=== PATIENT | female | born 1960 | race Caucasian/White ===

== ENCOUNTER 2016-08-14 17:20 | Emergency (ER) | payer SELFPAY ==
[2016-08-14] MEDS ORDERED: KETOROLAC TROMETHAMINE 60 MG/2 ML SDV IM ONE (17:53)
[2016-08-14] MEDS ORDERED: OXYCODONE-ACETAMINOPHEN 5-325 MG TABLET PO ONE (17:53)
[2016-08-14] MEDS ORDERED: ONDANSETRON 4 MG TAB.RAPDIS PO ONE (17:53)
--- NOTE | 2016-08-14 17:55 | ER Document Report ---
ED Medical Screen (RME) - General Chief Complaint: Abdominal Pain Stated Complaint: ABDOMINAL PAIN Notes: This 52-year-old female reports severe pain from her left lower abdomen going into the left flank started about 2 hours prior to arrival. She is unable sit still. She is moaning and groaning. She is nauseous and trying to dry heave. She has never had anything like this before, no history of kidney stones. She does have rheumatoid and lupus. TRAVEL OUTSIDE OF THE [place] IN LAST 30 DAYS: No - Related Data Allergies/Adverse Reactions: levofloxacin [From Levaquin] Allergy (Verified 08/14/16 17:35) morphine Allergy (Verified 08/14/16 17:35) Past Medical History Renal/ Medical History: Denies: Hx Peritoneal Dialysis Physical Exam - Vital signs Vitals: Temp Pulse Resp BP Pulse Ox 98.2 F 81 20 186/79 H 99 08/14/16 17:32 08/14/16 17:32 08/14/16 17:32 08/14/16 17:32 08/14/16 17:32 Course - Vital Signs Vital signs: Temp Pulse Resp BP Pulse Ox 98.2 F 81 20 186/79 H 99 08/14/16 17:32 08/14/16 17:32 08/14/16 17:32 08/14/16 17:32 08/14/16 17:32
[2016-08-14 18:27] LABS: ABSOLUTE BASOPHILS # (AUTO) 0.1 10^3/uL (0.0-0.2); ABSOLUTE EOSINOPHILS # (AUTO) 0.5 10^3/uL (0.0-0.6); ABSOLUTE MONOCYTES (AUTO) 0.6 10^3/uL (0.1-1.4); ABSOLUTE NEUT (AUTO) 9.4 10^3/uL (1.7-8.2); BASOPHILS % (AUTO) 0.5 % (0-2); EOSINOPHILS % (AUTO) 3.8 % (0-6); HEMATOCRIT 42.5 % (36.0-47.0); HEMOGLOBIN 14.6 g/dL (12.0-15.5); HGB HCT DIFFERENCE 1.3; LYMPHOCYTES % (AUTO) 15.7 % (13-45); MEAN CORPUSCULAR HEMOGLOBIN 30.7 pg (27.0-33.4); MEAN CORPUSCULAR HGB CONC 34.4 g/dL (32.0-36.0); MEAN CORPUSCULAR VOLUME 89 fl (80-97); MONOCYTES % (AUTO) 5.1 % (3-13); RED BLOOD COUNT 4.77 10^6/uL (3.72-5.28); SEGMENTED NEUTROPHILS % (AUTO) 74.9 % (42-78); WHITE BLOOD COUNT 12.6 10^3/uL (4.0-10.5)
[2016-08-14 18:32] LABS: APPEARANCE,URINE SLIGHTLY-CLOUDY; BILIRUBIN,URINE NEGATIVE (NEGATIVE); GLUCOSE, URINE NEGATIVE (NEGATIVE); KETONES,URINE NEGATIVE (NEGATIVE); LEUKOCYTE ESTERASE,URINE NEGATIVE (NEGATIVE); NITRITE,URINE NEGATIVE (NEGATIVE); PROTEIN,URINE 100 mg/dL (NEGATIVE); UROBILINOGEN,URINE NEGATIVE mg/dL (<2.0)
[2016-08-14 18:46] LABS: ALANINE AMINOTRANSFERASE 48 U/L (9-52); ALBUMIN 4.4 g/dL (3.5-5.0); ALKALINE PHOSPHATASE 70 U/L (38-126); ANION GAP 19 (5-19); ASPARTATE AMINO TRANSFERASE 37 U/L (14-36); BILIRUBIN,DIRECT 0.3 mg/dL (0.0-0.4); BILIRUBIN,TOTAL 0.3 mg/dL (0.2-1.3); BLOOD UREA NITROGEN 20 mg/dL (7-20); CALCIUM 9.7 mg/dL (8.4-10.2); CARBON DIOXIDE 17 mmol/L (22-30); CHLORIDE 110 mmol/L (98-107); CREATININE RESULT 0.97 mg/dL (0.52-1.25); GLUCOSE 110 mg/dL (75-110); POTASSIUM 3.8 mmol/L (3.6-5.0)
[2016-08-14] MEDS ORDERED: KETOROLAC TROMETHAMINE INJ/PF 30 MG/1 ML SDV IV ONE (21:21)
[2016-08-14] MEDS ORDERED: MORPHINE SULFATE 10 MG/ML INJ IV ONE (21:21)
[2016-08-14] MEDS ORDERED: ONDANSETRON HCL INJ/PF 4 MG/2 ML SDV IV ONE (21:22)
[2016-08-14] MEDS ORDERED: NORMAL SALINE 1000 ML 1,000 ML IV ONE (21:42)
[2016-08-14] MEDS ORDERED: FENTANYL CITRATE INJ/PF 100 MCG/2 ML AMPUL IV PRN (21:42)
[2016-08-14] MEDS ORDERED: HYDROCODONE/ACETAMINOPHEN 5-325 MG 6 TAB/DSPK PO PRN (21:54)
[2016-08-14] MEDS ORDERED: ONDANSETRON ODT 4 MG TAB (6 TAB/DSPK) PO PRN (21:54)
--- NOTE | 2016-08-14 21:56 | ER Document Report ---
ED General - General Chief Complaint: Abdominal Pain Stated Complaint: ABDOMINAL PAIN Notes: Patient is a 56-year-old female without past medical history who presents with acute onset of severe left flank pain. Described as a constant, stabbing, sharp , severe pain. Nothing improves or worsens the pain. She has no history of similar symptoms in the past. She has not seen her primary care doctor regarding today's concerns. She notes associated vomiting. Denies any focal lower abdominal tenderness. No chest pain or shortness of breath. She has not had syncope. TRAVEL OUTSIDE OF THE [place] IN LAST 30 DAYS: No - Related Data Allergies/Adverse Reactions: levofloxacin [From Levaquin] Allergy (Verified 08/14/16 17:35) morphine Allergy (Verified 08/14/16 17:35) Past Medical History - General Information source: Patient - Social History Smoking Status: Never Smoker Frequency of alcohol use: None Drug Abuse: None Lives with: Spouse/Significant other Family History: Reviewed & Not Pertinent Patient has suicidal ideation: No Patient has homicidal ideation: No Renal/ Medical History: Denies: Hx Peritoneal Dialysis Review of Systems - Review of Systems Notes: Constitutional: Negative for fever. HENT: Negative for sore throat. Eyes: Negative for visual changes. Cardiovascular: Negative for chest pain. Respiratory: Negative for shortness of breath. Gastrointestinal: Negative for abdominal pain, positive for vomiting. Positive for left flank pain Genitourinary: Positive for hematuria Musculoskeletal: Negative for back pain. Skin: Negative for rash. Neurological: Negative for headaches, weakness or numbness. 10 point ROS negative except as marked above and in HPI. Physical Exam - Vital signs Vitals: Temp Pulse Resp BP Pulse Ox 98.2 F 81 20 186/79 H 99 08/14/16 17:32 08/14/16 17:32 08/14/16 17:32 08/14/16 17:32 08/14/16 17:32 Interpretation: Hypertensive Notes: PHYSICAL EXAMINATION: GENERAL: Appears uncomfortable but in no acute distress HEAD: Atraumatic, normocephalic. EYES: Pupils equal round and reactive to light, extraocular movements intact, sclera anicteric, conjunctiva are normal. ENT: nares patent, oropharynx clear without exudates. Moist mucous membranes. NECK: Normal range of motion, supple without lymphadenopathy LUNGS: Breath sounds clear to auscultation bilaterally and equal. No wheezes rales or rhonchi. HEART: Regular rate and rhythm without murmurs ABDOMEN: Soft, nontender, normoactive bowel sounds. No guarding, no rebound. No masses appreciated. Mild left CVA tenderness EXTREMITIES: Normal range of motion, no pitting or edema. No cyanosis. NEUROLOGICAL: No focal neurological deficits. Moves all extremities spontaneously and on command. PSYCH: Normal mood, normal affect. SKIN: Warm, Dry, normal turgor, no rashes or lesions noted. Course - Re-evaluation Re-evalutation: 08/14/16 21:53 Presents with findings consistent with acute nephrolithiasis. Urinalysis does show hematuria. Laboratory otherwise unremarkable. Pain was able to be controlled here in the emergency department. Patient is tolerating oral intake. Clinical history is not consistent with an acute abdominal aneurysm or dissection, GA, or pulmonary embolus. Bedside ultrasound with mild hydronephrosis on the right. No indication for CT imaging. Urinalysis does not show findings consistent with an infected stone. Vitals have remained within normal limits. Patient will be discharged with recommendations to follow -up with urology, pain medications, and return precautions. They are in agreement with this plan and verbalized indications return to emergency department. - Vital Signs Vital signs: Temp Pulse Resp BP Pulse Ox 97.9 F 86 14 168/102 H 96 08/14/16 23:45 08/14/16 23:45 08/14/16 23:45 08/14/16 23:45 08/14/16 23:45 - Laboratory Result Diagrams: 08/14/16 18:00 08/14/16 18:00 Laboratory results interpreted by me: 08/14/16 08/14/16 08/14/16 18:00 18:00 18:00 WBC 12.6 H Absolute Neutrophils 9.4 H Sodium 146.0 H Chloride 110 H Carbon Dioxide 17 L AST 37 H Urine Protein 100 H Urine Blood LARGE H - Diagnostic Test Radiology reviewed: Image reviewed, Reports reviewed Radiology results interpreted by me: 08/15/16 02:59 CT abdomen pelvis without contrast: Left-sided kidney stone Discharge - Discharge Clinical Impression: Kidney stone on left side Condition: Good Disposition: HOME, SELF-CARE Additional Instructions: Your symptoms should improve over the course of the next one week. If you continue to have pain for greater than one week or your pain is not controlled with the pain medications that you have been sent home with you need to return to the emergency department. Please also return if you develop fever, persistent vomiting, or any other symptoms that are concerning to you. You should take ibuprofen 600 mg every 6 hours and use the Percocet as prescribed only for pain not controlled by ibuprofen. Your also been sent home with a medication called Flomax to help pass the stone. You've been given Zofran to assist with nausea. Please followup closely with your primary care provider. Prescriptions: Hydrocodone/Acetaminophen [Gravette 5-325 Tablet] 1 - 2 tab PO Q4HP PRN #20 tablet PRN Reason: Ondansetron [Zofran Odt 4 mg Tablet] 4 mg PO Q4HP PRN #30 tab.rapdis PRN Reason: Tamsulosin HCl [Flomax 0.4 mg Cap.sr] 0.4 mg PO DAILY #7 cap.sr.24h
[2016-08-14] MEDS ORDERED: HYDROCODONE/ACETAMINOPHEN 5-325 MG TABLET PO ONE (22:45)
[2016-08-15 00:08] VITALS: BP 168/102
== END 2016-08-14 23:50 | disposition home or self-care (01) ==
LOC: ER 17:20
DX: N20.0 Calculus of kidney (principal); R10.9 Unspecified abdominal pain; Z88.6 Allergy status to analgesic agent
CPT/HCPCS: 99284; 96361; 96374; 96375; 36415; 85025; 80053; 81001; 76380; S0119; J3010; J1885; J2405; J7030

== ENCOUNTER → 2017-07-02 | Outpatient (CLI) | payer OTHER ==
--- NOTE | 2017-07-02 18:35 | XCELERA REPORT ---
[address] [address] Transthoracic Echocardiogram Report Name: JANA PATE Age: 56 yrs Gender: Female : 1960 Patient Status: Outpatient Patient Location: [facility] Study Date: 07/02/2017 03:04 PM Height: 64 in Weight: 260 lb BSA: 2.2 m2 Procedure: A complete two-dimensional transthoracic echocardiogram was performed (2D, M-mode, spectral and color flow Doppler). The study was technically adequate with some images being suboptimal in quality. Reason For Study: HYPERTENSION Ordering Physician: CHINA TRAN Performed By: Kennedi Merritt Interpretation Summary The left ventricular ejection fraction is normal. There is mild concentric left ventricular hypertrophy. The left ventricle is grossly normal size. Doppler measurements suggest pseudonormalized left ventricular relaxation, which is associated with grade II/IV or mild to moderate diastolic dysfunction Wall motion cannot be accurately commented on, but no definite regional wall motion abnormalities noted. The right ventricular systolic function is normal. The right ventricle is grossly normal size. The right atrium is normal in size The left atrial size is normal. There is a trace amount of mitral regurgitation There is no mitral valve stenosis. No aortic regurgitation is present. There is no aortic valve stenosis There is a trace or physiologic amount of tricuspid regurgitation Tricuspid regurgitation jet envelope not well defined to measure RV systolic pressure accurately, but probably at the upper limits of normal. The aortic root is not well visualized but is probably normal size. The inferior vena cava appeared normal and decreased > 50% with respiration (RAP 5-10 mmHg) There is no pericardial effusion. MMode/2D Measurements & Calculations RVDd: 2.5 cm LVIDd: 4.3 cm FS: 40.0 % Ao root diam: 2.5 cm IVSd: 1.1 cm LVIDs: 2.6 cm EDV(Teich): 83.4 ml LVPWd: 1.1 cm ESV(Teich): 24.2 ml Ao root area: 4.7 cm2 EF(Teich): 71.0 % Doppler Measurements & Calculations MV E max humza: MV dec slope: Ao V2 max: LV V1 max P.4 cm/sec 149.0 cm/sec 4.1 mmHg MV A max humza: 633.5 cm/sec2 Ao max PG: LV V1 max: 128.7 cm/sec MV dec time: 8.9 mmHg 100.8 cm/sec MV E/A: 0.83 0.17 sec PA V2 max: PI end-d humza: TR max humza: 108.9 cm/sec 80.1 cm/sec 192.0 cm/sec PA max P.7 mmHg TR max P.7 mmHg Left Ventricle The left ventricle is grossly normal size. There is mild concentric left ventricular hypertrophy. The left ventricular ejection fraction is normal. Doppler measurements suggest pseudonormalized left ventricular relaxation, which is associated with grade II/IV or mild to moderate diastolic dysfunction. Wall motion cannot be accurately commented on, but no definite regional wall motion abnormalities noted. Right Ventricle The right ventricle is grossly normal size. There is normal right ventricular wall thickness. The right ventricular systolic function is normal. Atria The right atrium is normal in size. The left atrial size is normal. Interarterial septum not well visualized and not well dopplered. Cannot comment on ASD/PFO presence. Mitral Valve The mitral valve is grossly normal. There is no mitral valve stenosis. There is a trace amount of mitral regurgitation. Aortic Valve The aortic valve is not well visualized secondary to technical limitations. The aortic valve opens well. There is no aortic valve stenosis. No aortic regurgitation is present. Tricuspid Valve The tricuspid valve is not well visualized, but is grossly normal. There is no tricuspid stenosis. There is a trace or physiologic amount of tricuspid regurgitation. Tricuspid regurgitation jet envelope not well defined to measure RV systolic pressure accurately. Right ventricular systolic pressure is at the upper limits of normal. Pulmonic Valve The pulmonic valve is not well visualized. There is no pulmonic valvular stenosis. There is no pulmonic valvular regurgitation. Great Vessels The aortic root is not well visualized but is probably normal size. The inferior vena cava appeared normal and decreased > 50% with respiration (RAP 5-10 mmHg). Effusions There is no pericardial effusion. : CHINA TRAN > Eriberto Paz
== END ==
LOC: SP 14:44
PROVIDERS: ATTEND Internal Medicine Clinical Cardiac Electrophysiology
DX: I10 Essential (primary) hypertension (principal); R06.00 Dyspnea, unspecified; R53.83 Other fatigue
CPT/HCPCS: 93306

== ENCOUNTER → 2017-11-06 | Outpatient (CLI) | payer OTHER ==
--- NOTE | 2017-11-07 09:01 | EEG PRO FEE REPORT ---
EEG INTERPRETATION PATIENT NAME: JANA PATE ROOM#: ORDER#: [id number] DATE OF STUDY: 11/06/2017 : 1960 REFERRING MD: CHILO GLOVER M.D. MEDICATIONS Niacin, Omeprazole, Ondansetron, Pilocarpine, Prednisone, Singulair, flaxseed, folic acid, Plaquenil, Hydroxizine, Lisinopril, Albuterol, Asmanex, Celebrex, Cyclobenzaprine, fish oil, Zyrtec, vitamin D, Enbrel, Tropendi, Sulphasalazine, Spiriva, savinaline History This is a 57 year old right handed woman with a history of seizures as a child at the age of 13 to 14 years old, hypertension, lupus, Sjgrens, asthma, and an enlarged heart. The patient notes her hand and body tremble when she is nervous or taking food to her mouth. This EEG was requested for possible seizures. EEG Interpretation This EEG was recorded in the awake and minimal drowsy states only. The awake EEG is characterized by a well organized background with a well developed and reactive posterior dominant rhythm of 10 Hz. Drowsiness is characterized by attenuation and minimal slowing of the background rhythms. Photic stimulation resulted in a good driving response. Hyperventilation was not performed. There was no epileptiform activity noted. There was muscle artifact in the frontal and temporal channels throughout much of the recording. The EKG strip showed a rate of approximately 60 beats per minute. EEG Impression This EEG is normal in the awake and minimal drowsy states. The heart rate was at the lower end of the normal range for age. INTERPRETING PHYSICIAN: CHIQUITA NELSON M.D. /: MTELYSE TT: [id number] ID: [id number] /: [id number] TD: 2000 JOB: [id number] cc:Eulogio MORENO M.D. > MTDD
== END ==
LOC: NEURO 08:24
PROVIDERS: ATTEND Pediatrics
DX: G40.909 Epilepsy, unspecified, not intractable, without status epilepticus (principal)
CPT/HCPCS: 95819

== ENCOUNTER → 2019-09-24 | Outpatient (CLI) | payer OTHER ==
--- NOTE | 2019-09-24 18:11 | RADIOLOGY REPORT (SQ) ---
EXAM DESCRIPTION: VENOUS UNILATERAL LOWER IMAGES COMPLETED DATE/TIME: 09/24/2019 5:45 pm REASON FOR STUDY: LLE SWELLING R22.42 LOCALIZED SWELLING, MASS AND LUMP, LEFT LOWER LIMB COMPARISON: None. TECHNIQUE: Dynamic and static block scale and color images acquired of the left leg venous system. Se lected spectral images acquired with additional compression and augmentation maneuvers. The contralat eral common femoral vein and saphenofemoral junction were also imaged. Images stored on PACS. LIMITATIONS: None. FINDINGS: COMMON FEMORAL: Normal phasicity, compression and augmentation. No visualized echogenic ma terial on block scale. No defects on color images. FEMORAL: Normal compression and augmentation. No visualized echogenic material on block scale. No defe cts on color images. POPLITEAL: Normal compression, augmentation. No visualized echogenic material on block scale. No defec ts on color images. CALF VESSELS: Normal compression, augmentation. No visualized echogenic material on block scale. No de fects on color images. GSV and SSV: Normal compression, augmentation. No visualized echogenic material on block scale. No def ects on color images. ANY DEEP VENOUS INSUFFICIENCY: Not evaluated. ANY EVIDENCE OF POPLITEAL CYST: No. OTHER: No other significant finding. CONTRALATERAL COMMON FEMORAL VEIN AND SAPHENOFEMORAL JUNCTION: Normal phasicity, compression and augmentation. No visualized echogenic material on block scale. No de fects on color images. IMPRESSION: NO EVIDENCE DVT OR SVT IN THE LEFT LEG. TECHNICAL DOCUMENTATION: JOB ID: [id number] 2010 [employer]- All Rights Reserved Reading location - IP/workstation name: [email or web address]
== END ==
LOC: SP 16:34
PROVIDERS: ATTEND Registered Nurse
DX: R22.42 Localized swelling, mass and lump, left lower limb (principal)
CPT/HCPCS: 93971